=== PATIENT | female | born 1990 | race Caucasian/White ===

== ENCOUNTER → 2019-04-28 11:14 | Outpatient (BNVA) | payer OTHER, SELFPAY | PROVIDERS: Family Provider Family Medicine; PCP Nurse Practitioner Family; Visit Provider Registered Nurse | DX: R53.83 Other fatigue (principal) | CPT/HCPCS: 80053; 84443; 85025 ==

== ENCOUNTER → 2019-12-31 13:45 | Outpatient (BNVA) | payer OTHER, SELFPAY | PROVIDERS: Family Provider Family Medicine; PCP Nurse Practitioner Family; Visit Provider Nurse Practitioner Family | DX: Z20.828 Contact with and (suspected) exposure to other viral communicable diseases (principal) | CPT/HCPCS: 87635 ==